=== PATIENT | female | born 1970 | race Caucasian/White ===

== ENCOUNTER 2017-02-19 18:12 | Emergency (ER) | payer OTHER ==
[~2017-02-19] VITALS: Ht 167.6 cm; Wt 75.5 kg
[~2017-02-19 18:12] MED LIST: FLEXERIL10 MG PO; Levaquin PO; METHADONE10 MG PO; MOTRIN800 MG PO; Methadone PO; NAPROSYN500 MG PO; PERCOCET 5/31 TABLET PO; VALIUM5 MG PO; no home medications
[2017-02-19 18:35] VITALS: BP 125/77
[2017-02-19 19:27] LABS: APPEARANCE CLEAR ((CLEAR)); BILIRUBIN NEGATIVE; BLOOD NEGATIVE; COLOR YELLOW ((YELLOW)); GLUCOSE (STRIP) NEGATIVE; KETONES NEGATIVE; LEUKOCYTES NEGATIVE; NITRITE NEGATIVE; PROTEIN (STRIP) NEGATIVE; SPECIFIC GRAVITY 1.005 (1.000-1.030); UCUL ADDED? NO; UROBILINOGEN 0.2 MG/DL (0.2-1.0)
== END 2017-02-19 21:50 | disposition left against medical advice (07) ==
LOC: EME 18:12
DX: R05 Cough (principal); R53.1 Weakness; Z53.21 Procedure and treatment not carried out due to patient leaving prior to being seen by health care provider
CPT/HCPCS: 80053; 81003; 85027

== ENCOUNTER 2017-06-07 16:52 | Emergency (ER) | payer OTHER | END 2017-06-07 17:36 | disposition left against medical advice (07) | LOC: EME 16:52 | DX: M79.89 Other specified soft tissue disorders (principal); Z53.21 Procedure and treatment not carried out due to patient leaving prior to being seen by health care provider ==

== ENCOUNTER 2017-06-25 16:01 | Emergency (ER) | payer OTHER ==
[~2017-06-25] VITALS: Ht 167.6 cm; Wt 72.8 kg
[2017-06-25 16:28] VITALS: BP 116/81
== END 2017-06-25 17:44 | disposition left against medical advice (07) ==
LOC: EME 16:01
DX: M79.602 Pain in left arm (principal); M79.601 Pain in right arm; M25.561 Pain in right knee; Z53.21 Procedure and treatment not carried out due to patient leaving prior to being seen by health care provider